=== PATIENT | female | born 1985 | race African-American/Black ===

== ENCOUNTER 2021-03-18 13:07 | Emergency (ER) | payer SELFPAY ==
[~2021-03-18] VITALS: Ht 162.6 cm; Wt 69.4 kg
--- NOTE | 2021-03-18 14:50 | NUR ---
PT TO ROOM FROM LOBBY
[2021-03-18] MEDS ORDERED: ACETAMINOPHEN 500 MG TABLET PO ONE (15:30)
[2021-03-18] MEDS ORDERED: IBUPROFEN 600 MG TABLET PO ONE (15:30)
[2021-03-18 15:49] VITALS: BP 129/85
[2021-03-18] MEDS ORDERED: IBUPROFEN 600 MG TABLET ONE (15:58)
[2021-03-18] MEDS ORDERED: ACETAMINOPHEN 500 MG TABLET ONE (15:58)
--- NOTE | 2021-03-18 16:00 | NUR ---
PT REFUSING MEDS, WOULD RATHER PURCHASE OTC.
== END 2021-03-18 16:02 | disposition home or self-care (01) ==
LOC: ED 13:37
DX: S16.1XXA Strain of muscle, fascia and tendon at neck level, initial encounter (principal); S20.212A Contusion of left front wall of thorax, initial encounter; M25.512 Pain in left shoulder; V49.49XA Driver injured in collision with other motor vehicles in traffic accident, initial encounter; Y93.89 Activity, other specified; Y92.009 Unspecified place in unspecified non-institutional (private) residence as the place of occurrence of the external cause; Y99.8 Other external cause status
CPT/HCPCS: 72125; 99284

== ENCOUNTER 2021-04-01 13:37 | Emergency (ER) | payer SELFPAY ==
[~2021-04-01] VITALS: Ht 167.6 cm; Wt 70.8 kg
--- NOTE | 2021-04-01 14:10 | NUR ---
pathological technician: Pt ambulatory to room from lobby at this time.
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
[2021-04-01 14:33] VITALS: BP 109/67
--- NOTE | 2021-04-01 14:33 | NUR ---
PT RESTING ON GURNEY. NADN. GAYLE.
--- NOTE | 2021-04-01 15:34 | NUR ---
CARE FOR DC ONLY PROVIDED. PT SITTING ON GURNEY, NO ACUTE DISTRESS. NO IV TO DC. REVIEWED DC INSTRUCTIONS WITH PT. UNDERSTANDING VERBALIZED. PT LEFT AMB, GAIT STEADY.
== END 2021-04-01 15:37 | disposition home or self-care (01) ==
LOC: ED 14:00
DX: S39.012A Strain of muscle, fascia and tendon of lower back, initial encounter (principal); S29.012A Strain of muscle and tendon of back wall of thorax, initial encounter; V49.69XA Unspecified car occupant injured in collision with other motor vehicles in traffic accident, initial encounter; Y93.89 Activity, other specified; Y92.89 Other specified places as the place of occurrence of the external cause; Y99.8 Other external cause status
CPT/HCPCS: 72072; 72110; 99284